=== PATIENT | female | born 1980 | race African-American/Black ===

== ENCOUNTER 2016-08-15 16:51 | Emergency (ER) | payer MEDICAID ==
[~2016-08-15] VITALS: Ht 165.1 cm; Wt 54.0 kg
[2016-08-15] MEDS ORDERED: IBUPROFEN 600MG TABLET PO STA (17:46)
[2016-08-15] MEDS ORDERED: ACETAMINOPHEN WITH CODEINE 300/30MG TABLET PO ONE (23:15)
[2016-08-15 23:54] LABS: CLARITY URINE CLOUDY (CLEAR); COLOR URINE YELLOW (YELLOW); GLUCOSE URINE NEGATIVE (NEGATIVE); KETONES URINE NEGATIVE (NEGATIVE); LEUKOCYTE ESTERASE URINE 2+ (NEGATIVE); NITRITE URINE POSITIVE (NEGATIVE); OCCULT BLOOD URINE TRACE (NEGATIVE); PROTEIN URINE NEGATIVE (NEGATIVE); SPECIFIC GRAVITY URINE 1.025 (1.005-1.030)
[2016-08-16 00:16] LABS: RBC URINE 0-2 /hpf (0-2)
[2016-08-16 00:17] LABS: BACTERIA URINE 4+; SQUAMOUS EPITHELIAL CELL URINE FEW /lpf (RARE/1+)
[2016-08-16 02:00] VITALS: BP 100/69
== END 2016-08-16 02:23 | disposition home or self-care (01) ==
LOC: ER 16:52
DX: N39.0 Urinary tract infection, site not specified (principal); R07.89 Other chest pain; Y04.0XXA Assault by unarmed brawl or fight, initial encounter
CPT/HCPCS: 71010; 81001; 81025; 99285

== ENCOUNTER 2018-04-26 01:30 | Observation (INO) | payer MEDICAID ==
[~2018-04-26] VITALS: Ht 170.2 cm; Wt 62.6 kg
[2018-04-26] MEDS ORDERED: LACTATED RINGERS 1,000 ML IV ONE (02:15)
[2018-04-26] MEDS ORDERED: TERBUTALINE SULFATE 1MG/ML VIAL SUBCUT PRN (02:15)
[2018-04-26] MEDS ORDERED: LACTATED RINGERS 1,000 ML IV NR (02:45)
[2018-04-26] MEDS ORDERED: PNV1TABL50 MT (06:21)
== END 2018-04-26 08:05 | disposition home or self-care (01) ==
LOC: 8EST NSY 01:30 → 8 EST LDRP 02:11
PROVIDERS: ADMIT Obstetrics & Gynecology; ATTEND Obstetrics & Gynecology
DX: O62.9 Abnormality of forces of labor, unspecified (principal); O09.523 Supervision of elderly multigravida, third trimester; Z3A.30 30 weeks gestation of pregnancy
CPT/HCPCS: 96372; 99281; G0378; J3105; 59412; 96360; 96361

== ENCOUNTER 2018-07-05 18:28 | Inpatient (IN) | payer MEDICAID ==
[~2018-07-05] VITALS: Ht 170.2 cm; Wt 61.2 kg
[~2018-07-05 18:28] MED LIST: MISOPROSTOL 200MCG TABLET ONE; OXYTOCIN 10 UNITS/ML 1ML ONE; PNV1TABL50 MT
[2018-07-05] MEDS ORDERED: LACTATED RINGERS 1,000 ML IV SCH (18:48)
[2018-07-05] MEDS ORDERED: BUTORPHANOL TARTRATE 2 MG/ML VIAL IV PRN (19:00)
[2018-07-05] MEDS ORDERED: LIDOCAINE HCL 1% 20ML VIAL (Pyxis) INJ INFIL SCH (19:00)
[2018-07-05] MEDS ORDERED: DEXT 5%/LR + PITOCIN 20UNITS/L 1,000 ML IV SCH ×2 (19:00→21:00)
[2018-07-05] MEDS ORDERED: MISOPROSTOL 100MCG TABLET VG SCH (19:00)
[2018-07-05] MEDS ORDERED: PENICILLIN G POTASSIUM 5 MMU in DEXT 5% WATER 100 ML IV NR (19:00)
[2018-07-05] MEDS ORDERED: LANOLIN OINT 0.25 GM TUBE TOP PRN (20:30)
[2018-07-05] MEDS ORDERED: IBUPROFEN 400MG TABLET PO PRN (20:30)
[2018-07-05] MEDS ORDERED: RHO(D) IMMUNE GLOBULIN 300 MCG/SYR IM PRN (20:30)
[2018-07-05] MEDS: IBUPROFEN 800MG TABLET PO PRN (20:58)
[2018-07-05] MEDS ORDERED: DOCUSATE SODIUM 100MG CAPSULE PO SCH (21:00)
[2018-07-05] MEDS ORDERED: OXYTOCIN 10 UNITS/ML 1ML IM NR (21:15)
[2018-07-05] MEDS ORDERED: MISOPROSTOL 200MCG TABLET PO NR (21:30)
[2018-07-05 22:05] VITALS: BP 118/76
[2018-07-05 22:30] VITALS: BP 121/79
[2018-07-05 23:00] VITALS: BP 128/80
[2018-07-05] MEDS ORDERED: PENICILLIN G POTASSIUM 2.5 MMU in DEXTROSE 5% WATER 50 ML IV SCH (23:00)
[2018-07-05 23:51] LABS: HEMOGLOBIN. 9.9 g/dL (12.0-16.0); MEAN CORPUSCULAR HEMOGLOBIN 27.8 pg (28.0-32.0); MEAN CORPUSCULAR VOLUME 87.4 fL (81.0-99.0); MEAN PLATELET VOLUME 9.7 fl (7.4-10.4); PLATELET 203 x1000/uL (130-400); RED BLOOD CELL COUNT 3.55 mill/uL (4.2-5.4); RED CELL DISTRIBUTION WIDTH 16.6 % (11.6-14.6)
[2018-07-06 00:08] LABS: CHLORIDE 106 mEq/L (98-107)
[2018-07-06 00:13] LABS: INR 0.9; PARTIAL THROMBOPLASTIN TIME 29.6 sec (23.4-31.0); PROTHROMBIN TIME 9.4 sec (9.1-11.1)
[2018-07-06 00:20] LABS: PLATELET ESTIMATE NORMAL
[2018-07-06 00:42] LABS: HEPATITIS B SURFACE ANTIGEN NEGATIVE
[2018-07-06 01:09] LABS: CLARITY URINE CLOUDY (CLEAR); KETONES URINE 2+ (NEGATIVE); LEUKOCYTE ESTERASE URINE 1+ (NEGATIVE); NITRITE URINE NEGATIVE (NEGATIVE); OCCULT BLOOD URINE 3+ (NEGATIVE); PROTEIN URINE 1+ (NEGATIVE); SPECIFIC GRAVITY URINE 1.024 (1.005-1.030); UROBILINOGEN URINE 0.2 E.U./dL (0.2-1.0)
[2018-07-06 01:31] LABS: COLOR URINE BLOODY (YELLOW)
[2018-07-06 01:48] LABS: *BARBITURATES SCREEN URINE NEGATIVE (NEGATIVE); *BENZODIAZEPINES SCREEN URINE NEGATIVE (NEGATIVE); *COCAINE SCREEN URINE NEGATIVE (NEGATIVE); METHADONE URINE SCREEN NEGATIVE (NEGATIVE); OPIATES URINE SCREEN NEGATIVE (NEGATIVE); PHENCYCLIDINE URINE SCREEN NEGATIVE (NEGATIVE)
[2018-07-06 01:57] LABS: *AMPHETAMINES SCREEN URINE PRESUMTIVE POSITIVE (NEGATIVE)
[2018-07-06 01:58] LABS: CANNABINOID URINE SCREEN PRESUMTIVE POSITIVE (NEGATIVE)
[2018-07-06 04:00] VITALS: BP 136/81
[2018-07-06] MEDS: IBUPROFEN 800MG TABLET PO PRN ×3 (05:52→21:18)
[2018-07-06 07:19] LABS: BASOPHILS % 0.3 % (0.0-2.0); EOSINOPHILS % 0.1 % (0.0-5.0); HEMATOCRIT. 26.8 % (36.0-48.0); HEMOGLOBIN. 8.6 g/dL (12.0-16.0); LYMPHOCYTES % 15.4 % (20.0-50.0); MEAN CORPUSCULAR HEMOGLOBIN 28.3 pg (28.0-32.0); MEAN CORPUSCULAR VOLUME 87.8 fL (81.0-99.0); MEAN PLATELET VOLUME 9.8 fl (7.4-10.4); MONOCYTES % 5.6 % (2.0-8.0); NEUTROPHILS % 78.6 % (40.0-76.0); PLATELET 196 x1000/uL (130-400); RED BLOOD CELL COUNT 3.05 mill/uL (4.2-5.4); RED CELL DISTRIBUTION WIDTH 16.4 % (11.6-14.6)
[2018-07-06 08:00] VITALS: BP 99/60
[2018-07-06] MEDS: PRENATAL VIT/FE FUMARATE/FA TABLET PO SCH (09:03)
[2018-07-06 14:00] VITALS: BP 104/62
[2018-07-06 19:30] VITALS: BP 100/58
[2018-07-07 04:00] VITALS: BP 99/56
[2018-07-07 09:00] VITALS: BP 102/56
[2018-07-07] MEDS: PRENATAL VIT/FE FUMARATE/FA TABLET PO SCH (09:00)
[2018-07-07] MEDS: IBUPROFEN 800MG TABLET PO PRN (13:58)
[2018-07-07 16:00] VITALS: BP 104/60
[2018-07-11 04:14] LABS: AMPHETAMINE CONF URINE Positive (.); CANNABINOID CONFIRMATION URINE Positive (.)
== END 2018-07-07 19:00 | disposition home or self-care (01) | DRG 560 ==
LOC: 8 EST LDRP 18:28 → OBSVTOIN 18:28 → INTOOBSV 18:28 → 8EST 23:10
PROVIDERS: ADMIT Obstetrics & Gynecology; ATTEND Obstetrics & Gynecology
PROC: 10E0XZZ Delivery of Products of Conception, External Approach (ICD-10-PCS; principal; 2018-07-05)
DX: O48.0 Post-term pregnancy (principal); O24.12 Pre-existing type 2 diabetes mellitus, in childbirth; E11.22 Type 2 diabetes mellitus with diabetic chronic kidney disease; O75.89 Other specified complications of labor and delivery; O34.219 Maternal care for unspecified type scar from previous cesarean delivery; N18.9 Chronic kidney disease, unspecified; Z37.0 Single live birth; Z3A.40 40 weeks gestation of pregnancy
CPT/HCPCS: 36415; 80305; 80307; 80349; 86592; 86703; 86762; 86850; 86900; 87340; 99281; J2540; J2590; J3490; J7060